=== PATIENT | female | born 1995 | race African-American/Black ===

== ENCOUNTER 2018-02-19 10:06 | Emergency (ER) | payer MEDICAID ==
[~2018-02-19] VITALS: Ht 152.4 cm; Wt 43.5 kg
[2018-02-19] MEDS ORDERED: NKM (10:28)
[2018-02-19] MEDS ORDERED: Acetaminophen 500mg (ES) tab ORAL ONE (10:45)
[2018-02-19] MEDS ORDERED: Bacitracin Oint UD TOPIC ONE ×2 (10:54→11:00)
--- NOTE | 2018-02-19 11:30 | Diagnostic Imaging Report ---
Indication: Pain Technique: Continuous helical CT scanning of the head was performed utilizing automated exposure control without intravenous contrast material. Axial and coronal reconstructions were obtained. Comparison: None CT dose: Total DLP 1347.43 mGycm; CTDI vol 70.38 mGy Findings: There is no acute intracranial hemorrhage, mass effect or cortical edema. The ventricles, cisterns and sulci are normal limits for age. Visualized mastoid air cells and paranasal sinuses are unremarkable. There is left posterior parietal soft tissue swelling/scalp hematoma. No skull process calvarial identified. IMPRESSION: No evidence of acute intracranial hemorrhage, mass effect or cortical edema. Left posterior parietal soft tissue swelling. No depressed calvarial fracture. The CT scanner at [facility] is accredited by the [employer] and the scans are performed using protocols designed to limit radiation exposure to as low as reasonably achievable to attain images of sufficient resolution adequate for diagnostic evaluation.
--- NOTE | 2018-02-19 11:33 | Diagnostic Imaging Report ---
Indication: Pain Technique: XRAY Hand Complete L Comparison: None Findings: There is no acute fracture or dislocation. Alignment and joint spaces are preserved. No radiopaque foreign body identified. Impression: No acute fracture or dislocation.
[2018-02-19] MEDS ORDERED: ACETAMINOPHEN500 M3 ORAL (11:54)
[2018-02-19] MEDS ORDERED: BACITRACIN ZIN1 EACH TOPIC (11:54)
[2018-02-19 12:20] VITALS: BP 123/83
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
== END 2018-02-19 12:19 | disposition home or self-care (01) ==
LOC: EMR 10:55
DX: S00.93XA Contusion of unspecified part of head, initial encounter (principal); S60.512A Abrasion of left hand, initial encounter; S00.01XA Abrasion of scalp, initial encounter; V09.9XXA Pedestrian injured in unspecified transport accident, initial encounter; Y92.9 Unspecified place or not applicable
CPT/HCPCS: 70450; 81025; 99284